=== PATIENT | male | born 1980 | race Caucasian/White ===

== ENCOUNTER 2017-05-20 19:36 | Emergency (ER) | payer SELFPAY ==
[~2017-05-20] VITALS: Ht 170.2 cm; Wt 70.0 kg
[2017-05-20 20:25] VITALS: BP 115/80
== END 2017-05-20 22:15 | disposition left against medical advice (07) ==
LOC: ER 22:04
DX: R04.0 Epistaxis (principal); Z53.21 Procedure and treatment not carried out due to patient leaving prior to being seen by health care provider

== ENCOUNTER 2017-05-21 19:39 | Emergency (ER) | payer SELFPAY | END 2017-05-21 21:40 | disposition left against medical advice (07) | LOC: ER 21:29 | DX: R04.0 Epistaxis (principal); Z53.21 Procedure and treatment not carried out due to patient leaving prior to being seen by health care provider ==